=== PATIENT | male | born 1945 | race Caucasian/White ===

== ENCOUNTER 2017-11-03 11:45 | Day surgery (SDC) | payer OTHER, MEDICARE ==
[~2017-11-03 11:45] MED LIST: CEFAZOLIN 2 Gram 2 GM/50 ML BAG IVPB ONE
[2017-11-03] MEDS ORDERED: FENTANYL PF 100MCG/2ML VIAL IV ONE (11:46)
[2017-11-03] MEDS ORDERED: MIDAZOLAM HCL 2MG/2ML VIAL IV ONE (11:46)
[2017-11-03] MEDS ORDERED: PROPOFOL 10 MG/ML VIAL IV ONE (11:46)
[2017-11-03] MEDS ORDERED: LIDOCAINE 2% MDV (20MG/ML) 20ML VIAL IV ONE (11:46)
--- NOTE | 2017-11-04 12:31 | Operative Note ---
DATE OF SURGERY: 11/03/2017 PREOPERATIVE DIAGNOSIS: Prostate cancer with hydronephrosis. POSTOPERATIVE DIAGNOSIS: Prostate cancer with hydronephrosis. OPERATION: Cystoscopy, bilateral retrograde pyelogram, exchange of left ureteral stent. Anesthesia: Sedation. Indication: A 72-year-old male with the above history who was admitted late 2017 to [facility] with severe renal failure. He had imaging that showed left-sided hydronephrosis and stent was placed at that time. His renal function has now largely normalized and he was started on Xtandi as well as LHRH injections which has resulted in significant biochemical improvement of his disease. He now presents for his 3-month exchange of the stent. We discussed the procedure preoperatively in great detail including potential risks of pain, bleeding, infection, iatrogenic injury, and stent-related side effects. He understands and wishes to proceed. PROCEDURE: Preop informed consent was obtained. Antibiotics were given. Sedation was administered. The patient was brought to the operating room, placed carefully in lithotomy position with the genitalia prepped and draped sterilely. Cystoscopy was performed. Urethra appears unremarkable. The prostate appears nonobstructive status post prior resection. The bladder was entered and inspected systematically. The bladder was irrigated out to clear. Both ureteral orifices had normal appearance and positioning, and the left orifice had distal curl of the double-J stent visualized. Retrograde injection of contrast into the right ureter showed no evidence of any obstruction or filling defect of the right ureter or upper tracts. The left stent was grasped and removed. Guidewire was advanced through the stent into the left collecting system, and an open-tipped catheter was advanced over the wire. There was injection of contrast into the left which did show persistent [id number] ureteral obstruction due to extrinsic compression. At this point, I elected to replace the stent. The guidewire was replaced and a 26 cm 6-Botswanan double-J stent was advanced over the wire without difficulty, left in correct position confirmed both proximally and distally. Cystoscopy was then repeated. There was abundant efflux through the distal coil of the stent into the bladder again confirming good drainage of the kidney, and the procedure was then terminated and the patient was awakened and sent to recovery in stable condition. PLAN: The patient will have repeat of his laboratory work in 1 month, and we will plan on exchanging his stent in another 3 months. CC: Dr. Dustin YOUNG
== END 2017-11-03 14:45 | disposition home or self-care (01) ==
LOC: SUR 11:45
PROVIDERS: ATTEND Urology
DX: C61 Malignant neoplasm of prostate (principal); N13.30 Unspecified hydronephrosis
CPT/HCPCS: 74420; 52332; 00910; J0690

== ENCOUNTER 2018-01-26 11:57 | Day surgery (SDC) | payer OTHER, MEDICARE ==
[2018-01-26] MEDS ORDERED: PROPOFOL 10 MG/ML VIAL IV ONE (11:58)
[2018-01-26] MEDS ORDERED: FENTANYL PF 100MCG/2ML VIAL IV ONE (11:58)
[2018-01-26] MEDS ORDERED: LIDOCAINE 2% MDV (20MG/ML) 20ML VIAL IV ONE (11:58)
[2018-01-26] MEDS ORDERED: MIDAZOLAM HCL 2MG/2ML VIAL IV ONE (11:58)
--- NOTE | 2018-01-27 12:21 | Operative Note ---
DATE OF SURGERY: 01/26/2018 PREOPERATIVE DIAGNOSIS: Prostate cancer with metastases and left hydronephrosis. POSTOPERATIVE DIAGNOSIS: Prostate cancer with metastases and left hydronephrosis. OPERATION: Cystoscopy, right retrograde pyelogram, and exchange of left ureteral stent. Anesthesia: Sedation. Surgeon: Hans Soliz MD Brazing Machine Operator Helper: None. PROCEDURE: Preop informed consent was obtained. Antibiotics were given. Sedation was administered. The patient was brought to the cystoscopy suite and placed supine and further sedation was given. He was then carefully placed in lithotomy position with genitalia prepped and draped sterilely. Cystoscopy was performed. The anterior urethra appears unremarkable. The prostate appears nonobstructive. The bladder was entered and inspected systematically. The existing left ureteral stent was visualized. The right ureteral orifice was also visualized in orthotopic position. Injection of contrast was performed into the right ureter and fluoroscopic images were obtained. Keeping in mind the fine detail limitations for mobile C-arm fluoroscopy, the right upper tract appeared unremarkable without any evidence of stricture, dilatation, or filling defect. Drainage was rapid and immediate. The left ureteral stent was then partially removed with a flexible grasper. Guidewire was advanced through the stent into the left collecting system. The old stent was removed and a new 26 cm 6-Italian double-J stent was then advanced over the wire and confirmed to be in correct position both proximally and distally. At that point, the bladder was emptied and the scope was removed. The patient was awakened and transferred to recovery in stable condition. PLAN: The patient will follow up in the [facility] in 4 months to review his PSA, receive his next Lupron injection, and then he will be scheduled for his next stent exchange shortly thereafter. CC: Dr. Jessica Vázquez MD [facility]
== END 2018-01-26 14:45 | disposition home or self-care (01) ==
LOC: SUR 11:57
PROVIDERS: ATTEND Urology
DX: N13.30 Unspecified hydronephrosis (principal); C61 Malignant neoplasm of prostate
CPT/HCPCS: 52332; 00910; 74420; Q9958; J3010; J0690

== ENCOUNTER 2018-06-01 11:28 | Day surgery (SDC) | payer OTHER, MEDICARE ==
[2018-06-01] MEDS ORDERED: MIDAZOLAM HCL 2MG/2ML VIAL IV ONE (11:29)
[2018-06-01] MEDS ORDERED: FENTANYL PF 100MCG/2ML VIAL IV ONE (11:29)
[2018-06-01] MEDS ORDERED: LIDOCAINE 2% MDV (20MG/ML) 20ML VIAL IV ONE (11:29)
[2018-06-01] MEDS ORDERED: PROPOFOL 10 MG/ML VIAL IV ONE (11:29)
[2018-06-01 13:33] LABS: EOS % 7.1 % (0-6); GRAN % 62.9 % (47-80); HEMATOCRIT 35.4 % (42.0-52.0); HEMOGLOBIN 11.5 gm/dl (14.0-18.0); LYMPH % 19.8 % (16-45); MEAN CELL VOLUME 90.1 fl (81-97); MEAN CORPUSCULAR HEMOGLOBIN 29.2 pg (27-33); MEAN CORPUSCULAR HGB CONC 32.5 g/dl (32-36); MEAN PLATELET VOLUME 9.4 fl (7.4-10.4); MONO % 9.2 % (0-9); PLATELET COUNT 266 K/uL (130-400); RED BLOOD COUNT 3.93 M/uL (4.40-5.70); RED CELL DISTRIBUTION WIDTH 13.4 % (11.5-14.5); WHITE BLOOD COUNT W/O DIFF 5.2 K/uL (4.2-12.2)
--- NOTE | 2018-06-02 14:10 | Operative Note ---
DATE OF SURGERY: 06/01/2018 PREOPERATIVE DIAGNOSIS: Prostate cancer with hydronephrosis and retained left ureteral stent. POSTOPERATIVE DIAGNOSIS: Prostate cancer with hydronephrosis and retained left ureteral stent. OPERATION: Cystoscopy with bilateral retrograde pyelograms, exchange of left ureteral stent. Anesthesia: Sedation. Surgeon: Hans Soliz MD Digital Project Coordinator: None. Stent in the left side was replaced with a 6 cm by 26-[employer] double-J stent. PROCEDURE: Preop informed consent was obtained. Antibiotics were given. Sedation was administered. The patient was brought to the operating room, given further sedation and carefully placed in lithotomy position with genitalia prepped and draped sterilely. Cystoscopy was performed. Urethra appears unremarkable. The prostate appears wide open, nonobstructive. The bladder was entered and the left ureteral stent was immediately seen emanating from its orifice. The right orifice appeared normal in appearance and positioning. The left stent was partially removed and left retrograde pyelogram was performed revealing very narrowed section of ureter consistent with high-grade obstruction. At that point, I elected to replace the stent, and a new 26 cm 6- [place] double-J stent was advanced over the wire and confirmed to be in correct position both fluoroscopically and cystoscopically. There was rapid urine coming through the stent into the bladder indicating good placement. The removed stent was somewhat encrusted and was difficult to cannulate in the beginning. Retrograde injection of contrast was performed into the right ureter next and the right ureter appeared uniform all the way up to the collecting system and there was rapid drainage of contrast through the ureter into the bladder indicating no evidence of significant obstruction. I elected not to place a stent in the right side. The bladder was then emptied. The scope was removed. The patient was awakened and transferred to recovery in stable condition. PLAN: The patient should have the next procedure done in 4 months either late September or early October of 2018. CC: Dr. Tatiana Vázqeuz MD [facility]
== END 2018-06-01 15:00 | disposition home or self-care (01) ==
LOC: SUR 11:28
PROVIDERS: ATTEND Urology
DX: C61 Malignant neoplasm of prostate (principal); N13.30 Unspecified hydronephrosis; Z96.0 Presence of urogenital implants
CPT/HCPCS: 52005; 52332; 00910; 85025; 76000; C1769; Q9962; J3010; J0690

== ENCOUNTER 2018-08-31 12:17 | Day surgery (SDC) | payer OTHER, MEDICARE ==
[2018-08-31] MEDS ORDERED: FENTANYL PF 100MCG/2ML VIAL IV ONE (12:18)
[2018-08-31] MEDS ORDERED: MIDAZOLAM HCL 2MG/2ML VIAL IV ONE (12:18)
[2018-08-31] MEDS ORDERED: LIDOCAINE 2% MDV (20MG/ML) 20ML VIAL IV ONE (12:18)
[2018-08-31] MEDS ORDERED: PROPOFOL 10 MG/ML VIAL IV ONE (12:18)
[2018-08-31 12:33] LABS: BASO % 0.5 % (0-6); EOS % 2.4 % (0-6); GRAN % 67.6 % (47-80); HEMOGLOBIN 13.8 gm/dl (14.0-18.0); LYMPH % 21.7 % (16-45); MEAN CELL VOLUME 89.6 fl (81-97); MEAN CORPUSCULAR HEMOGLOBIN 29.4 pg (27-33); MEAN CORPUSCULAR HGB CONC 32.9 g/dl (32-36); MEAN PLATELET VOLUME 9.3 fl (7.4-10.4); MONO % 7.8 % (0-9); PLATELET COUNT 263 K/uL (130-400); RED BLOOD COUNT 4.69 M/uL (4.40-5.70); RED CELL DISTRIBUTION WIDTH 14.2 % (11.5-14.5); WHITE BLOOD COUNT W/O DIFF 5.9 K/uL (4.2-12.2)
[2018-08-31 12:48] LABS: BLOOD UREA NITROGEN 19 mg/dL (8-23); CREATININE 1.1 mg/dL (0.7-1.2); EST GLOMERULAR FILTRATION RATE > 60 mL/min; GLUCOSE,RANDOM 103 mg/dL (74-109)
== END 2018-08-31 14:55 | disposition home or self-care (01) ==
LOC: SUR 12:17
PROVIDERS: ATTEND Urology
DX: C61 Malignant neoplasm of prostate (principal); N13.39 Other hydronephrosis; T83.192A Other mechanical complication of indwelling ureteral stent, initial encounter
CPT/HCPCS: 52005; 52332; 00910; 85025; 80048; 74420; C1769; Q9958; J3010; J0690

== ENCOUNTER 2018-10-08 17:54 | Emergency (ER) | payer OTHER, MEDICARE ==
[2018-10-08 19:22] LABS: BASO % 0.6 % (0-6); EOS % 2.6 % (0-6); GRAN % 63.6 % (47-80); HEMATOCRIT 42.4 % (42.0-52.0); HEMOGLOBIN 13.9 gm/dl (14.0-18.0); LYMPH % 24.7 % (16-45); MEAN CELL VOLUME 89.8 fl (81-97); MEAN CORPUSCULAR HEMOGLOBIN 29.4 pg (27-33); MEAN CORPUSCULAR HGB CONC 32.8 g/dl (32-36); MONO % 8.5 % (0-9); PLATELET COUNT 283 K/uL (130-400); RED BLOOD COUNT 4.72 M/uL (4.40-5.70); RED CELL DISTRIBUTION WIDTH 13.8 % (11.5-14.5); WHITE BLOOD COUNT W/O DIFF 5.4 K/uL (4.2-12.2)
[2018-10-08 19:28] LABS: BLOOD UREA NITROGEN 27 mg/dL (8-23); CREATININE 0.9 mg/dL (0.7-1.2); EST GLOMERULAR FILTRATION RATE > 60 mL/min
[2018-10-08 19:29] LABS: TOTAL PROTEIN 8.3 g/dL (6.6-8.7)
--- NOTE | 2018-10-08 19:29 | Emergency Department Record ---
History of Present Illness - General Chief Complaint: Numbness Stated Complaint: NUMB FEET Time Seen by Provider: 10/08/18 18:34 Source: Patient Mode of Arrival: Ambulatory Limitations: No limitations - History of Present Illness Initial Comments: pt has a hx of prostate CA since 2016 and recently with mets to spine. he has had several bouts of chemo and done well. today he had a sudden onset of numbness in his l leg up to his knee and numbness in his r foot. he is not having problems with his bowel or bladder. he ambulated in. he states it feels like his feet are asleep -: Hour(s) Location: Left leg, Right leg Quality: Numb, Tingling Improves With: None Worsens With: None Context: Sudden onset Associated Symptoms: Denies other symptoms Treatments Prior to Arrival: None - Saira Coma Scale Eye Response: (4) Open spontaneously Motor Response: (6) Obeys commands Verbal Response: (5) Oriented [place] Total: 15 - Related Data Allergies/Adverse Reactions: Allergies Allergy/AdvReac Type Severity Reaction Status Date / Time tetanus and diphtheria Allergy Severe SWELLING Verified 10/08/18 18:14 toxoids (GENERAL) peanuts Allergy Severe SWELLING Uncoded 08/19/18 14:42 OF THE LIPS Travel Screening - Travel/Exposure Within Last 30 Days Have you traveled within the last 30 days?: No Review of Systems Reviewed: No additional complaints except as noted below Constitutional: Reports: As per HPI. Denies: Chills, Fever, Malaise, Night sweats, Weakness, Weight change Eyes: Reports: As per HPI. Denies: Eye discharge, Eye pain, Photophobia, Vision change ENT: Reports: As per HPI. Denies: Congestion, Dental pain, Ear pain, Epistaxis , Hearing loss, Throat pain Respiratory: Reports: As per HPI. Denies: Cough, Dyspnea, Hemoptysis, Stridor, Wheezes Cardiovascular: Reports: As per HPI. Denies: Arrhythmia, Chest pain, Dyspnea on exertion, Edema, Murmurs, Orthopnea, Palpitations, Paroxysmal nocturnal dyspnea, Rheumatic Fever, Syncope Endocrine: Reports: As per HPI. Denies: Fatigue, Heat or cold intolerance, Polydipsia, Polyuria Gastrointestinal: Reports: As per HPI. Denies: Abdominal pain, Constipation, Diarrhea, Hematemesis, Hematochezia, Melena, Nausea, Vomiting Genitourinary: Reports: As per HPI. Denies: Dysuria, Frequency, Hematuria, Incontinence, Retention, Testicular pain, Testicular mass, Urgency Musculoskeletal: Reports: As per HPI. Denies: Arthralgia, Back pain, Gout, Joint swelling, Myalgia, Neck pain Skin: Reports: As per HPI. Denies: Bruising, Change in color, Change in hair/ nails, Lesions, Pruritus, Rash Neurological: Reports: As per HPI, Numbness, Tingling. Denies: Abnormal gait, Confusion, Headache, Paresthesias, Seizure, Tremors, Vertigo, Weakness Psychiatric: Reports: As per HPI. Denies: Anxiety, Auditory hallucinations, Depression, Homicidal thoughts, Suicidal thoughts, Visual hallucinations Hematological/Lymphatic: Reports: As per HPI. Denies: Anemia, Blood Clots, Easy bleeding, Easy bruising, Swollen glands Past Medical History - SOCIAL HISTORY Smoking Status: Former smoker Alcohol Use: None Drug Use: None - RESPIRATORY Hx Respiratory Disorders: No - CARDIOVASCULAR Hx Cardio Disorders: Yes Hx Edema: Yes (left ankle at times) Comment:: pt unable to stand straight due to weak spine due to mets. 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") - GI Hx GI Disorders: No Hx Wt Loss/Wt Gain: (weight has stabelized) - Hx Genitourinary Disorders: Yes Hx Bladder Problem: Yes Hx Dialysis: No Hx Prostate Problems: Yes (CA) Hx Renal Disease: Yes (renal failure 11-17) Hx UTI: Yes (was RX cipro-almost done with rx) Comment:: on Nupron q 3 months - ENDOCRINE Hx Endocrine Disorders: No Hx Diabetes: No - MUSCULOSKELETAL Hx Musculoskeletal Disorders: Yes Hx Back Injury: Yes - PSYCH Hx Psych Problems: No - HEMATOLOGY/ONCOLOGY Hx Hematology/Oncology Disorders: Yes Hx Anemia: Yes Hx Cancer: Yes (prostate mets to bone) Hx Chemotherapy: Yes (on oral meds) Hx Radiation Therapy: No Comment:: oral chemo daily. just started new med 4 months ago Family Medical History Any Significant Family History?: Yes Hx Cancer: Mother Physical Exam - General General Appearance: Alert, Oriented x3, Cooperative, Mild distress - Head Head exam: Normal inspection - Eye Eye exam: Normal appearance, PERRL, EOMI Pupils: Normal accommodation - ENT ENT exam: Normal exam, Mucous membranes moist, Normal external ear exam, Normal orophraynx Ear exam: Normal external inspection. negative: External canal tenderness Nasal Exam: Normal inspection. negative: Discharge, Sinus tenderness Mouth exam: Normal external inspection, Tongue normal Teeth exam: Normal inspection. negative: Dental caries Throat exam: Normal inspection. negative: Tonsillar erythema, Tonsillar exudate - Neck Neck exam: Normal inspection, Full ROM. negative: Tenderness - Respiratory Respiratory exam: Normal lung sounds bilaterally. negative: Respiratory distress - Cardiovascular Cardiovascular Exam: Regular rate, Normal rhythm, Normal heart sounds - GI/Abdominal GI/Abdominal exam: Soft, Normal bowel sounds. negative: Tenderness - Rectal Rectal exam: Deferred - exam: Deferred - Extremities Extremities exam: Normal inspection, Full ROM, Normal capillary refill. negative: Tenderness - Back Back exam: Reports: Full ROM, Tenderness, Vertebral tenderness. Denies: Muscle spasm, Rash noted - Neurological Neurological exam: Alert, CN II-XII intact, Motor sensory deficit (in l leg and r foot, decreased sensation), Normal gait, Oriented X3 - Psychiatric Psychiatric exam: Normal affect, Normal mood - Skin Skin exam: Dry, Intact, Normal color, Warm Course Vital Signs 10/08/18 18:08 Temperature 97.8 F Pulse Rate 87 Respiratory 14 Rate Blood Pressure 140/93 Pulse Ox 94 L Medical Decision Making - Lab Data Result diagrams: 10/08/18 19:08 10/08/18 19:08 Lab Results 10/08/18 Range/Units 19:08 WBC 5.4 (4.2-12.2) K/uL RBC 4.72 (4.40-5.70) M/uL Hgb 13.9 L (14.0-18.0) gm/dl Hct 42.4 (42.0-52.0) % MCV 89.8 (81-97) fl MCH 29.4 (27-33) pg MCHC 32.8 (32-36) g/dl RDW 13.8 (11.5-14.5) % Plt Count 283 (130-400) K/uL MPV 10.0 (7.4-10.4) fl Gran % 63.6 (47-80) % Lymphocytes % 24.7 (16-45) % Monocytes % 8.5 (0-9) % Eosinophils % 2.6 (0-6) % Basophils % 0.6 (0-6) % Disposition Disposition: Transfer Clinical Impression: Numbness and tingling of both legs, Metastasis to spinal column Disposition: Acute Care Hospital Transfer Transfer To: [facility] Reason For Transfer: sudden onset of bilateral numbness in lower extremities Accepting Physician: dr wilkes Time Discussed w/Accepting Physician: 19:57 Forms: Patient Portal Access Quality - Quality Measures Quality Measures: N/A - Blood Pressure Screening Does Patient Have Any of the Following: No Blood Pressure Classification: Hypertensive Reading Systolic Measurement: 140 Diastolic Measurement: 93 Screening for High Blood Pressure: < First Hypertensive BP, F/U Documented > [ G8950] First Hypertensive Follow-up Interventions: Follow-up with rescreen GT 1 day and LT 4 weeks.
[2018-10-08 19:31] LABS: GLUCOSE,RANDOM 105 mg/dL (74-109)
[2018-10-08 19:33] LABS: ALT/SGPT 9 U/L (<41); AST/SGOT 15 U/L (10.0-50.0)
[2018-10-08 19:34] LABS: ALB/GLOB RATIO 1.2 (1.1-1.8); ALBUMIN 4.5 g/dL (4.0-5.0); ALKALINE PHOSPHATASE 86 U/L (55-149)
== END 2018-10-08 20:25 | disposition short-term general hospital (02) ==
LOC: ER 17:54
DX: R20.0 Anesthesia of skin (principal); R20.2 Paresthesia of skin; C61 Malignant neoplasm of prostate; C79.51 Secondary malignant neoplasm of bone; Z87.891 Personal history of nicotine dependence
CPT/HCPCS: 80053; 85025; 99285

== ENCOUNTER 2018-10-30 17:26 | Emergency (ER) | payer MEDICARE, OTHER ==
--- NOTE | 2018-10-30 17:47 | Emergency Department Record ---
History of Present Illness - General Chief complaint: Rash Stated complaint: RASH Time Seen by Provider: 10/30/18 17:45 Source: Patient Mode of Arrival: Ambulatory Limitations: No limitations - History of Present Illness Initial comments: 73 yo male presents to ED for evaluation of an erythematous rash to the abdomen and back that developed this morning. Patient denies itchiness, fevers, chills , or recent illness. Patient denies any new medications, detergents, or foods. Patient does report that he takes oral chemo for prostate cancer for the past 1 year. MD complaint: Rash Onset/Timin -: Hour(s) Hx Tetanus Toxoid Vaccination: Yes Year of Tetanus Vaccination: unknown Location: Chest, Back Severity: Moderate Consistency: Constant Improves with: None Worsens with: None Context: None Associated symptoms: Denies other symptoms Treatments Prior to Arrival: None - Related Data Previous Rx's Medication Instructions Recorded Prednisone [Prednisone 20Mg] 20 mg PO BID #10 tab 10/30/18 Allergies Allergy/AdvReac Type Severity Reaction Status Date / Time tetanus and diphtheria Allergy Severe SWELLING Verified 10/08/18 18:14 toxoids (GENERAL) peanuts Allergy Severe SWELLING Uncoded 08/19/18 14:42 OF THE LIPS Travel Screening - Travel/Exposure Within Last 30 Days Have you traveled within the last 30 days?: No Review of Systems Constitutional: Denies: Chills, Fever, Malaise, Night sweats Eyes: Denies: Eye discharge, Eye pain, Photophobia ENT: Denies: Congestion, Ear pain, Epistaxis Respiratory: Denies: Cough, Dyspnea Cardiovascular: Denies: Chest pain, Dyspnea on exertion Endocrine: Denies: Fatigue, Heat or cold intolerance Gastrointestinal: Denies: Abdominal pain, Nausea, Vomiting Genitourinary: Denies: Incontinence, Retention Musculoskeletal: Denies: Arthralgia, Back pain, Gout, Joint swelling Skin: Reports: Rash. Denies: Bruising, Change in color, Change in hair/nails Neurological: Denies: Abnormal gait, Confusion, Headache, Tingling, Tremors Psychiatric: Denies: Anxiety Hematological/Lymphatic: Denies: Anemia, Blood Clots Past Medical History - SOCIAL HISTORY Smoking Status: Former smoker - RESPIRATORY Hx Respiratory Disorders: No - CARDIOVASCULAR Hx Cardio Disorders: Yes Hx Edema: Yes (left ankle at times) Comment:: pt unable to stand straight due to weak spine due to mets. 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") - GI Hx GI Disorders: No Hx Wt Loss/Wt Gain: (weight has stabelized) - Hx Genitourinary Disorders: Yes Hx Bladder Problem: Yes Hx Dialysis: No Hx Prostate Problems: Yes (CA) Hx Renal Disease: Yes (renal failure 11-17) Hx UTI: Yes (was RX cipro-almost done with rx) Comment:: on Nupron q 3 months - ENDOCRINE Hx Endocrine Disorders: No Hx Diabetes: No - MUSCULOSKELETAL Hx Musculoskeletal Disorders: Yes Hx Back Injury: Yes - PSYCH Hx Psych Problems: No - HEMATOLOGY/ONCOLOGY Hx Hematology/Oncology Disorders: Yes Hx Anemia: Yes Hx Cancer: Yes (prostate mets to bone) Hx Chemotherapy: Yes (on oral meds) Hx Radiation Therapy: No Comment:: oral chemo daily. just started new med 4 months ago Family Medical History Any Significant Family History?: Yes Hx Cancer: Mother Physical Exam - General General Appearance: Alert, Oriented x3, Cooperative, No acute distress Limitations: No limitations - Head Head exam: Atraumatic, Normocephalic, Normal inspection Head exam detail: negative: Abrasion, Contusion, Cabrera's sign, General tenderness, Hematoma, Laceration - Eye Eye exam: Normal appearance. negative: Conjunctival injection, Periorbital swelling, Periorbital tenderness, Scleral icterus - ENT Ear exam: negative: Auricular hematoma, Auricular trauma Nasal Exam: negative: Active bleeding, Discharge, Dried blood, Foreign body Mouth exam: negative: Drooling, Laceration, Muffled voice, Tongue elevation - Neck Neck exam: Normal inspection. negative: Meningismus, Tenderness - Respiratory Respiratory exam: Normal lung sounds bilaterally. negative: Rhonchi, Stridor, Wheezes - Cardiovascular Cardiovascular Exam: Regular rate, Normal rhythm, Normal heart sounds - GI/Abdominal GI/Abdominal exam: Soft, Other (Rash present). negative: Rebound, Rigid, Tenderness - Rectal Rectal exam: Deferred - exam: Deferred - Extremities Extremities exam: negative: Calf tenderness, Pedal edema, Tenderness - Back Back exam: Reports: Rash noted. Denies: CVA tenderness (R), CVA tenderness (L) - Neurological Neurological exam: Alert, Normal gait, Oriented X3 - Psychiatric Psychiatric exam: Normal affect, Normal mood - Skin Skin exam: Erythema, Rash Type of lesion: negative: abrasion Distribution of rash: Abdomen, Back Description of rash: Erythematous Course Vital Signs 10/30/18 17:37 Temperature 97.5 F L Pulse Rate 78 Respiratory 18 Rate Blood Pressure 143/94 Pulse Ox 99 - Reevaluation(s) Reevaluation #1: 10/30/18 17:51 Patient was seen and evaluated. No petechaie or purpura are present on examination. Rah has lacy reticular appearance c/w drug reaction. Recommended continued observation of the rash with prednisone as directed if symptoms worsen or fail to improve in 48-72 hours. Disposition Disposition: Discharge Clinical Impression: Adverse drug reaction Qualifiers: Encounter type: initial encounter Qualified Code(s): T50.905A - Adverse effect of unspecified drugs, medicaments and biological substances, initial encounter Disposition: Home, Self-Care Condition: (2) Stable Instructions: Adverse Drug Reaction (ED) Additional Instructions: Return to ED if your symptoms worsen or if you have any concerns. Prednisone as directed if your rash worsens. Follow-up with your oncologist in 1-3 days as directed. Prescriptions: Prednisone [Prednisone 20Mg] 20 mg PO BID #10 tab Forms: Patient Portal Access Time of Disposition: 17:46 Quality - Quality Measures Quality Measures: N/A - Blood Pressure Screening Does Patient Have Any of the Following: No Blood Pressure Classification: Hypertensive Reading Systolic Measurement: 143 Diastolic Measurement: 94 Screening for High Blood Pressure: < First Hypertensive BP, F/U Documented > [ G8950] First Hypertensive Follow-up Interventions: Referral to alternative/primary care provider.
== END 2018-10-30 18:01 | disposition home or self-care (01) ==
LOC: ER 17:26
DX: L27.0 Generalized skin eruption due to drugs and medicaments taken internally (principal); T50.905A Adverse effect of unspecified drugs, medicaments and biological substances, initial encounter; C61 Malignant neoplasm of prostate; C79.51 Secondary malignant neoplasm of bone; Z87.891 Personal history of nicotine dependence
CPT/HCPCS: 99282

== ENCOUNTER 2018-11-23 11:34 | Day surgery (SDC) | payer OTHER, MEDICARE ==
[2018-11-23] MEDS ORDERED: MIDAZOLAM HCL 2MG/2ML VIAL IV ONE (11:35)
[2018-11-23] MEDS ORDERED: PROPOFOL 10 MG/ML VIAL IV ONE (11:35)
[2018-11-23] MEDS ORDERED: FENTANYL PF 100MCG/2ML VIAL IV ONE (11:35)
[2018-11-23] MEDS ORDERED: LIDOCAINE 2% MDV (20MG/ML) 20ML VIAL IV ONE (11:35)
[2018-11-23 12:01] LABS: BASO % 0.6 % (0-6); GRAN % 63.1 % (47-80); HEMATOCRIT 41.3 % (42.0-52.0); HEMOGLOBIN 13.7 gm/dl (14.0-18.0); LYMPH % 25.8 % (16-45); MEAN CELL VOLUME 89.2 fl (81-97); MEAN CORPUSCULAR HGB CONC 33.2 g/dl (32-36); MEAN PLATELET VOLUME 9.4 fl (7.4-10.4); MONO % 7.5 % (0-9); PLATELET COUNT 254 K/uL (130-400); RED BLOOD COUNT 4.63 M/uL (4.40-5.70); RED CELL DISTRIBUTION WIDTH 13.6 % (11.5-14.5)
[2018-11-23 12:09] LABS: MEAN CORPUSCULAR HEMOGLOBIN 29.5 pg (27-33)
[2018-11-23 13:13] LABS: BLOOD UREA NITROGEN 22 mg/dL (8-23); CREATININE 0.9 mg/dL (0.7-1.2); EST GLOMERULAR FILTRATION RATE > 60 mL/min; GLUCOSE,RANDOM 107 mg/dL (74-109)
== END 2018-11-23 14:25 | disposition home or self-care (01) ==
LOC: SUR 11:34
PROVIDERS: ATTEND Urology
DX: C61 Malignant neoplasm of prostate (principal); N13.39 Other hydronephrosis; T83.192A Other mechanical complication of indwelling ureteral stent, initial encounter; N17.9 Acute kidney failure, unspecified; C79.51 Secondary malignant neoplasm of bone
CPT/HCPCS: 52005; 52332; 00910; 85025; 80048; 74420; C1769; Q9958; J3010; J0690

== ENCOUNTER 2019-03-15 11:27 | Day surgery (SDC) | payer OTHER, MEDICARE ==
[2019-03-15] MEDS ORDERED: MIDAZOLAM HCL 2MG/2ML VIAL IV ONE (11:28)
[2019-03-15] MEDS ORDERED: LIDOCAINE 2% MDV (20MG/ML) 20ML VIAL IV ONE (11:28)
[2019-03-15] MEDS ORDERED: PROPOFOL 10 MG/ML VIAL IV ONE (11:28)
[2019-03-15] MEDS ORDERED: FENTANYL PF 100MCG/2ML VIAL IV ONE (11:28)
[2019-03-15] MEDS ORDERED: RINGERS SOLUTION,LACTATED 1,000 ML IV ONE ×2 (11:45→13:10)
== END 2019-03-15 13:46 | disposition home health service (06) ==
LOC: SUR 11:27
PROVIDERS: ATTEND Urology
DX: C61 Malignant neoplasm of prostate (principal); N13.39 Other hydronephrosis; N17.9 Acute kidney failure, unspecified
CPT/HCPCS: 52332; 00910; 76000; C1769; Q9958; J3010; J0690; J7120

== ENCOUNTER 2019-08-29 16:21 | Emergency (ER) | payer OTHER, MEDICARE ==
[2019-08-29] MEDS ORDERED: KETOROLAC 30 MG/ML VIAL IM ONE (17:04)
--- NOTE | 2019-08-29 17:10 | Emergency Department Record ---
History of Present Illness - General Chief Complaint: Back Pain/Injury Stated Complaint: BACK PAIN Time Seen by Provider: 08/29/19 16:57 Source: Patient Mode of Arrival: Ambulatory Limitations: No limitations - History of Present Illness Initial Comments: 74 yo male presents with mid upper back pain. The onset was 6 days ago. He states he is not to be lifting any weight more than 10 pounds. He reports he was pushing a heavy garbage bin. He felt the pain at that time. The pain has been persistent since then. He has pain in the mid upper back close to wear he had a prior compression fracture. He has metastatic prostate cancer. No numbness, tingling, weakness, radiation to the arms or legs. No abdominal pain. No urinary symptoms. PCP is Kathie. Uro is Martínez. Onc is Tatiana. Complaint: Back pain, Back injury Onset/Timin -: Days(s) Similar Symptoms Previously: Yes (History of back fractures) Place: Home Radiation: None Severity: Moderate Severity scale (1-10): 8 Quality: Sharp Consistency: Intermittent Improves With: Other Worsens With: Movement Context: Other Associated Symptoms: Denies other symptoms Treatments Prior to Arrival: NSAIDS Treatment Prior to Arrival Comment:: 200mg, - Related Data Home Medications Medication Instructions Recorded Confirmed Last Taken Leuprolide Acetate [Lupron Depot 3.75 mg IM MONTHLY 08/29/19 08/29/19 3 Months Ago ([place])] ~05/29/19 1 Previous Rx's Medication Instructions Recorded Hydrocodone/APAP 7.5/325Mg [Weldon 1 each PO Q6H PRN #10 tab 08/29/19 7.5MG/325Mg] Allergies Allergy/AdvReac Type Severity Reaction Status Date / Time tetanus and diphtheria Allergy Severe SWELLING Verified 08/29/19 16:38 toxoids (GENERAL) smallpox vaccine,live Allergy SWELLING Verified 08/29/19 16:38 (GENERAL) peanuts Allergy Severe SWELLING Uncoded 08/29/19 16:38 OF THE LIPS Travel Screening - Travel/Exposure Within Last 30 Days Have you traveled within the last 30 days?: No - Travel/Exposure Within Last Year Have you traveled outside the [place] in the last year?: No - Additonal Travel Details Have you been exposed to anyone with a communicable illness?: No - Travel Symptoms Symptom Screening: None Review of Systems Constitutional: Denies: Chills, Fever, Malaise, Weakness Eyes: Denies: Eye discharge ENT: Denies: Congestion, Throat pain Respiratory: Denies: Cough, Dyspnea Cardiovascular: Denies: Chest pain, Palpitations, Syncope Endocrine: Denies: Fatigue, Polydipsia, Polyuria Gastrointestinal: Denies: Abdominal pain, Diarrhea, Nausea, Vomiting Genitourinary: Denies: Dysuria, Frequency, Hematuria Musculoskeletal: Reports: As per HPI, Back pain. 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 just started new med 4 months ago Family Medical History Any Significant Family History?: Yes Hx Cancer: Mother Physical Exam - General General Appearance: Alert, Oriented x3, Cooperative, No acute distress Limitations: No limitations - Head Head exam: Atraumatic, Normal inspection - Eye Eye exam: Normal appearance, PERRL. negative: Conjunctival injection, Scleral icterus - ENT ENT exam: Normal exam Ear exam: Normal external inspection Nasal Exam: Normal inspection Mouth exam: Normal external inspection - Neck Neck exam: Normal inspection, Full ROM - Respiratory Respiratory exam: Normal lung sounds bilaterally. negative: Accessory muscle use, Chest wall tenderness, Decreased breath sounds, Prolonged expiratory, Rhonc hi, Stridor, Wheezes - Cardiovascular Cardiovascular Exam: Regular rate, Normal rhythm, Normal heart sounds - GI/Abdominal GI/Abdominal exam: Soft. negative: Distended, Guarding, Tenderness - Rectal Rectal exam: Deferred - exam: Deferred - Extremities Extremities exam: Normal inspection. negative: Pedal edema, Tenderness - Back Back exam: Reports: Full ROM, Paraspinal tenderness, Tenderness, Vertebral tenderness. Denies: CVA tenderness (R), CVA tenderness (L) Image of Body Front/Back: 1 - tender mid to lower T spine area, normal inspection - Neurological Neurological exam: Alert, Oriented X3. negative: Altered, Motor sensory deficit - Psychiatric Psychiatric exam: Normal affect, Normal mood. negative: Agitated, Anxious - Skin Skin exam: Dry, Intact, Normal color, Warm Course Vital Signs 08/29/19 16:30 Temperature 97.7 F Pulse Rate 71 Respiratory 20 Rate Blood Pressure 135/86 Pulse Ox 99 - Reevaluation(s) Reevaluation #1: 08/29/19 18:13 XR report is still pending The patient declined additional pain medication at this time. 08/29/19 18:26 The T spine was reviewed. Chronic T12 and L1 Fx T11 is new from 04/27/19 Possible body fracture at T7 Recommend CT The L spine was reviewed See above read. 08/29/19 18:32 The patient was informed and agrees with CT scan The CT scan was signed out to Dr Ellis at the time of shift turnover Disposition Disposition: Discharge Clinical Impression: Compression fracture Disposition: Home, Self-Care Condition: (2) Stable Instructions: Vertebral Compression Fracture (ED) Additional Instructions: Return to ED if your symptoms worsen or if you have any concerns. Nadia as directed. Follow-up with Dr. Simpson in 3-5 days as directed. Prescriptions: Hydrocodone/APAP 7.5/325Mg [Weldon 7.5MG/325Mg] 1 each PO Q6H PRN #10 tab PRN Reason: Pain - Moderate (5-7) Forms: Patient Portal Access Time of Disposition: 20:25 Quality - Quality Measures Quality Measures: N/A - Blood Pressure Screening Does Patient Have Any of the Following: No Blood Pressure Classification: Pre-Hypertensive BP Reading Systolic Measurement: 138 Diastolic Measurement: 75 Screening for High Blood Pressure: < Pre-Hypertensive BP, F/U Documented > [G8950] Pre-Hypertensive Follow-up Interventions: Referral to alternative/primary care provider.
--- NOTE | 2019-08-29 18:23 | RADIOLOGY REPORT ---
EXAMINATION: THORACIC SPINE, LUMBAR SPINE / AP LAT EXAM DATE: 08/29/2019 5:36 PM TECHNIQUE: Frontal and lateral views of the thoracic and lumbar spine INDICATION: mid upper back pain, hx of T compression. COMPARISON: CT chest/abdomen/pelvis 04/27/2019 FINDINGS: THORACIC SPINE: Alignment is anatomic. Chronic T12 compression fracture is redemonstrated. Compared to 04/27/2019, there is a new T11 mahamed gregorio fracture with approximately 40% vertebral body height loss. Slight anterior wedging of T7 is als o new from the prior study. LUMBAR SPINE: Alignment is anatomic. Chronic fracture through the L1 superior endplate is redemonstrated. The other vertebral body heights are preserved. Disc height loss in the lower lumbar spine, more prominent at L5-S1. Left-sided ureteral stent. IMPRESSION: 1. Chronic T12 and L1 fractures. 2. T11 fracture is new from 04/27/2019. Possible fracture at the T7 vertebral body. Further character ization with CT is recommended. Dictated by: Frank Deal MD on 08/29/2019 6:16 PM. .
--- NOTE | 2019-08-29 19:50 | CT SCAN REPORT ---
EXAMINATION: CT Thoracic Spine without IV Contrast EXAM DATE: 08/29/2019 7:12 PM TECHNIQUE: Standard protocol CT imaging of the thoracic spine was performed without intravenous contr ast. Coronal and sagittal images were reconstructed. INDICATION: compression fracture COMPARISON: Thoracic spine radiographs August 29, [address] chest April 27, 2019 ENCOUNTER: Not applicable FINDINGS: Numerous compression fractures are again identified. Mild kyphosis of the thoracic spine is stable. A moderate chronic compression fracture with a prominent Schmorl node at the superior endplate of L1 is stable. A minimal compression deformity at T12 is stable with a stable sclerotic focus along the superior end plate. A mild compression deformity at T11 is stable. A moderate to severe compression fracture T10 involving the superior and inferior endplates appear st able. A minimal compression fracture at T7 appear stable. A mild compression fracture primarily involving the superior endplate with a prominent Schmorl node a t T5 appears stable. No acute fracture line is seen. Multilevel degenerative changes including endplate sclerosis and spurring are stable. IMPRESSION: 1. Stable CT of the thoracic spine with numerous chronic compression fractures described above, witho ut significant interval change from April 30, 2019. 2. No acute fracture line is seen. 3. The prior radiograph described a new T11 compression fracture but when comparing CT to CT this nikita ears chronic and stable. Dictated by: Haile Parsons MD on 08/29/2019 7:37 PM. .
--- NOTE | 2019-08-29 19:59 | Emergency Department Record ---
History of Present Illness - General Chief Complaint: Back Pain/Injury Stated Complaint: BACK PAIN Time Seen by Provider: 08/29/19 16:57 Source: Patient Limitations: No limitations - History of Present Illness Onset/Timin -: Days(s) Similar Symptoms Previously: Yes (History of back fractures) Place: Home Radiation: None Severity: Moderate Severity scale (1-10): 8 Quality: Sharp Consistency: Intermittent Improves With: Other Worsens With: Movement Context: Other Associated Symptoms: Denies other symptoms Treatments Prior to Arrival: NSAIDS Treatment Prior to Arrival Comment:: 200mg, - Related Data Home Medications Medication Instructions Recorded Confirmed Last Taken Leuprolide Acetate [Lupron Depot 3.75 mg IM MONTHLY 08/29/19 08/29/19 3 Months Ago ([place])] ~05/29/19 1 Previous Rx's Medication Instructions Recorded Hydrocodone/APAP 7.5/325Mg [Tyler 1 each PO Q6H PRN #10 tab 08/29/19 7.5MG/325Mg] Allergies Allergy/AdvReac Type Severity Reaction Status Date / Time tetanus and diphtheria Allergy Severe SWELLING Verified 08/29/19 16:38 toxoids (GENERAL) smallpox vaccine,live Allergy SWELLING Verified 08/29/19 16:38 (GENERAL) peanuts Allergy Severe SWELLING Uncoded 08/29/19 16:38 OF THE LIPS Travel Screening - Travel/Exposure Within Last 30 Days Have you traveled within the last 30 days?: No - Travel/Exposure Within Last Year Have you traveled outside the [place] in the last year?: No - Additonal Travel Details Have you been exposed to anyone with a communicable illness?: No - Travel Symptoms Symptom Screening: None Review of Systems Constitutional: Denies: Chills, Fever, Malaise, Weakness Eyes: Denies: Eye discharge ENT: Denies: Congestion, Throat pain Respiratory: Denies: Cough, Dyspnea Cardiovascular: Denies: Chest pain, Palpitations, Syncope Endocrine: Denies: Fatigue, Polydipsia, Polyuria Gastrointestinal: Denies: Abdominal pain, Diarrhea, Nausea, Vomiting Genitourinary: Denies: Dysuria, Frequency, Hematuria Musculoskeletal: Reports: As per HPI, Back pain. 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 just started new med 4 months ago Family Medical History Any Significant Family History?: Yes Hx Cancer: Mother Physical Exam - General Limitations: No limitations Course Vital Signs 08/29/19 08/29/19 16:30 19:12 Temperature 97.7 F Pulse Rate 71 Pulse Rate [ 69 Pulse Ox Probe] Respiratory 20 18 Rate Blood Pressure 135/86 Blood Pressure 139/91 [Right Arm] Pulse Ox 99 99 - Reevaluation(s) Reevaluation #1: 08/29/19 19:55 CT Thoracic Spine: Stable chronic compression fractures of the thoracic spine No acute fracture identified when comparing previous CT of the thoracic spine 04/22. Patient was updated on all results, will discharge home with prescription for Tyler as needed as his current prescription may be . Patient was instructed to follow-up with Dr. Simpson in 3-5 days as directed. Patient is ambulating in the ED without difficulty as well prior to discharge. Disposition Disposition: Discharge Clinical Impression: Compression fracture Disposition: Home, Self-Care Condition: (2) Stable Instructions: Vertebral Compression Fracture (ED) Additional Instructions: Return to ED if your symptoms worsen or if you have any concerns. Tyler as directed. Follow-up with Dr. Simpson in 3-5 days as directed. Prescriptions: Hydrocodone/APAP 7.5/325Mg [Tyler 7.5MG/325Mg] 1 each PO Q6H PRN #10 tab PRN Reason: Pain - Moderate (5-7) Forms: Patient Portal Access Time of Disposition: 19:58 Quality - Quality Measures Quality Measures: N/A - Blood Pressure Screening Does Patient Have Any of the Following: Active Dx of HTN Blood Pressure Classification: Pre-Hypertensive BP Reading Systolic Measurement: 138 Diastolic Measurement: 75 Screening for High Blood Pressure: Patient Exclusion, Hx of HTN [G9744]
== END 2019-08-29 20:05 | disposition home or self-care (01) ==
LOC: ER 16:21
DX: S22.080A Wedge compression fracture of T11-T12 vertebra, initial encounter for closed fracture (principal); R06.02 Shortness of breath; X50.0XXA Overexertion from strenuous movement or load, initial encounter; Y93.H9 Activity, other involving exterior property and land maintenance, building and construction; Y92.009 Unspecified place in unspecified non-institutional (private) residence as the place of occurrence of the external cause; C61 Malignant neoplasm of prostate; C79.51 Secondary malignant neoplasm of bone; Z87.891 Personal history of nicotine dependence
CPT/HCPCS: 72072; 72100; 72128; 96372; 99284; J1885